=== PATIENT | female | born 1995 | race Caucasian/White ===

== ENCOUNTER 2020-01-26 00:08 | Emergency (ER) | payer SELFPAY ==
[~2020-01-26] VITALS: Ht 162.6 cm; Wt 105.7 kg
[2020-01-26 00:22] VITALS: Ht 162.6 cm; Wt 105.7 kg
[2020-01-26 02:08] LABS: microscopic required? NO
[2020-01-26 02:52] LABS: urine erythrocyte NEGATIVE (NEGATIVE)
[2020-01-26 02:52] LABS: BASOPHIL % 0.6 % (0-2); PLATELET COUNT 291 x10^3mcL (130-400); RED CELL DISTRIBUTION WIDTH 13.4 % (11.5-14.5)
[2020-01-26 02:59] LABS: CALCIUM 9.1 mg/dL (8.5-10.1); CARBON DIOXIDE 25.7 mmol/L (21-32); CHLORIDE SERUM 104 mmol/L (98-107); CREATININE SERUM 0.9 mg/dL (0.6-1.0); GFR1 > 60 mL/min; GLUCOSE SERUM 106 mg/dL (74-106); SODIUM SERUM 138 mmol/L (136-145)
[2020-01-26 03:03] LABS: ALKALINE PHOSPHATASE 66 U/L (46-116); ALT/SGPT 19 U/L (14-59); AST/SGOT 11 U/L (15-37); BILIRUBIN TOTAL 0.2 mg/dL (0.20-1.00); CHOLESTEROL 170 mg/dL (<200); CHOLESTEROL/HDL RATIO 3.3; HDL CHOLESTEROL 52 mg/dL (40-60); LIPASE 105 IU/L (73-393); TRIGLYCERIDES 149 mg/dL (<150)
[2020-01-26 03:05] LABS: AMPHETAMINE QUAL UR NONE DETECTED (See below)
[2020-01-26 03:07] LABS: ALBUMIN 3.3 g/dL (3.4-5.0)
[2020-01-26 04:14] VITALS: BP 132/63
== END 2020-01-26 04:14 | disposition home or self-care (01) ==
LOC: ED 00:08
PROVIDERS: Specialist
DX: R10.32 Left lower quadrant pain (principal); S05.11XA Contusion of eyeball and orbital tissues, right eye, initial encounter; H11.31 Conjunctival hemorrhage, right eye; F10.20 Alcohol dependence, uncomplicated; E66.01 Morbid (severe) obesity due to excess calories; Y90.9 Presence of alcohol in blood, level not specified; X58.XXXA Exposure to other specified factors, initial encounter; Y93.89 Activity, other specified; Y92.89 Other specified places as the place of occurrence of the external cause; Y99.8 Other external cause status
CPT/HCPCS: G0480